=== PATIENT | female | born 1965 | race Caucasian/White ===

== ENCOUNTER 2017-03-31 14:06 | Emergency (ER) | payer SELFPAY ==
[~2017-03-31] VITALS: Ht 160 cm; Wt 124.5 kg
[2017-03-31 14:09] VITALS: BP 169/102; PULSE 86; RESP 20; TEMP 99.6; O2SAT 94
--- NOTE | 2017-03-31 14:14 | PD ---
Physical Exam Date Seen by Provider: Mar 31, 2017 Time Seen by Provider: 14:13 Narrative 51 yo female here for evaluation of throat and ear pain. Going on since wednesday. Pain is 7/10. No other medical issues. No sick contacts. Congestion. Vitals are stable in triage. Awaiting bed placement. Data Data Last Documented VS Vital Signs Date Time Temp Pulse Resp B/P (MAP) Pulse Ox O2 Delivery O2 Flow Rate FiO2 03/31/17 14:09 99.6 86 20 169/102 (124) [address] [facility] Medical Record Reviewed: Yes Supervised Visit with RADHA: No Scripts No Active Prescriptions or Reported Meds Sony Zurita Mar 31, 2017 14:14
[2017-03-31] MEDS ORDERED: DEXAMETHASONE SOD PHOS 4 MG/ML VIAL IM ONE (15:15)
[2017-03-31] MEDS ORDERED: IBUP800T23 PO (15:15)
[2017-03-31] MEDS ORDERED: AMOX500C PO (15:15)
[2017-03-31] MEDS ORDERED: MAGICPED SWISH-SPIT (15:15)
--- NOTE | 2017-03-31 15:16 | PD ---
HPI Chief Complaint: ENT Complaint Time Seen by Provider: 15:11 Travel History International Travel<30 days: No Contact w/Intl Traveler<30days: No Traveled to known affect area: No History of Present Illness HPI 51-year-old female presents emergency Department with complaint of sore throat and bilateral ear pain since Wednesday. Says she has history of strep pharyngitis and gets it every 3 years or so. Denies lump in throat, difficulty swallowing, unusual drooling. Reports painful swallowing. Reports anterior cervical lymph node tenderness and swelling. Reports voice is different. Denies nasal congestion, cough. Has tried salt water gargles and ibuprofen for symptom management. Symptoms are moderate in severity. No known allergies. Has no other medical complaints. No other modifying factors or associated signs and symptoms. PFSH Past Medical History Cardiovascular Problems: Yes (HTN) Diminished Hearing: No ?: Not LMP: 02/17/17 Tubal Ligation: Yes Past Surgical History Cholecystectomy: Yes Social History Alcohol Use: Yes (SOCIALLY) Tobacco Use: No Substance Use: No Allergies-Medications (Allergen,Severity, Reaction): Coded Allergies: No Known Allergies (Verified , 01/27/16) Reported Meds & Prescriptions Reported Meds & Active Scripts Active Ibuprofen 800 Mg Tab 800 Mg PO Q6HR PRN Magic Mouthwash Pediatric/Adult Liq (Lidocaine/Diphenhydr/Alum/Mg/Simeth) 60 Ml Susp 5 Ml SWISH-SPIT Q3HR PRN Each 5mL contains: Diphenydramine 4.5mg, Viscous Lidocaine 2% 10mg, Maalox Advanced Regular Strength 2.7ml Amoxicillin 500 Mg Cap 500 Mg PO BID 10 Days Review of Systems Except as stated in HPI: all other systems reviewed are Neg Physical Exam Narrative GENERAL: Well-nourished, well-developed female patient, in no acute distress; low-grade fever 99.6. Nontoxic-appearing. SKIN: Warm and dry. No rash. HEAD: Atraumatic. Normocephalic. EYES: Pupils equal and round at 3 mm with brisk reaction. No scleral icterus. No injection or drainage. PERRLA. ENT: Mucosa pink and dry. Pharynx with 3+ tonsils; with erythema, exudate, and edema. No Uvular edema. No uvular, palatal, or tonsillar deviation. Airway patent. Voice is hoarse. EARS: Bilateral pinnae and external canals appear within normal limits. Bilateral tympanic membranes without erythema, dullness or perforation.. NECK: Trachea midline. Anterior cervical lymphadenopathy and tenderness. CARDIOVASCULAR: Regular rate and rhythm. No murmur appreciated. RESPIRATORY: No accessory muscle use. Clear to auscultation. Breath sounds equal bilaterally. GASTROINTESTINAL: Rounded. MUSCULOSKELETAL: No obvious deformities. No clubbing. No cyanosis. No edema. NEUROLOGICAL: Awake and alert. Oriented 3. No obvious cranial nerve deficits. Motor grossly within normal limits. Normal speech. Moves all extremities. PSYCHIATRIC: Appropriate mood and affect; insight and judgment normal. Data Data Last Documented VS Vital Signs Date Time Temp Pulse Resp B/P (MAP) Pulse Ox O2 Delivery O2 Flow Rate FiO2 03/31/17 14:09 99.6 86 20 169/102 (124) 94 Room Air Orders Orders Group A Rapid Strep Screen (03/31/17 15:11) Dexamethasone Inj (Decadron Inj) (03/31/17 15:15) MDM Medical Decision Making Medical Screen Exam Complete: Yes Emergency Medical Condition: Yes Medical Record Reviewed: Yes Differential Diagnosis Strep pharyngitis, viral pharyngitis, exudative pharyngitis, less likely peritonsillar abscess Narrative Course 51-year-old female physical exam consistent with exudative pharyngitis. Low- grade fever of 99.6 in the ear. Denies fever, vomiting or home. Reports history of strep throat every few years. Denies lump in throat, difficulty swelling, unusual drooling. Patient requesting steroid injection. Decadron administered in the ER. Rapid strep ordered and pending. Amoxicillin, Magic mouthwash, ibuprofen prescribed for home. Instructed patient to follow up with primary care provider. Patient verbalizes understanding and agreement with treatment plan. Patient is medically cleared and stable for discharge. Discussed reasons to return to the emergency department. Patient agrees with treatment plan. The patients vital signs are stable and the patient is stable for outpatient follow-up and treatment. Patient discharged home, stable and in no acute distress. Diagnosis Primary Impression: Exudative pharyngitis Referrals: [facility] Primary Care Physician Patient Instructions: General Instructions, Pharyngitis (ED) Departure Forms: Tests/Procedures, Work Release Enter return to work date: Apr 02, 2017 Additional Instructions: Take Antibiotics as prescribed and complete full course of antibiotics Throw away and change your toothbrush 24 hours after starting antibiotics Get plenty of sleep/rest Rest your voice Drink plenty of fluids to prevent dehydration Use warm saltwater gargles to soothe throat pain Use an air humidifier/turn off ceiling fans Use throat lozenges as needed for sore throat Use ibuprofen or acetaminophen as needed to relieve pain and fever Follow-up with your primary care provider within 2-4 days Return immediately to the emergency department with worsening of symptoms Med/Other Pt SpecificInfo: Prescription(s) given Scripts Ibuprofen (Ibuprofen) 800 Mg Tab 800 MG PO Q6HR Y for PAIN, #30 TAB 0 Refills Prov: Lindy Parada 03/31/17 Dhntdrcodrkbspe-Jhdxpdybe-Coj-Alum-Simeth Liq (Magic Mouthwash Pediatric/Adult Liq) 60 Ml Susp 5 ML SWISH-SPIT Q3HR Y for SORE THROAT, #60 ML 0 Refills Each 5mL contains: Diphenydramine 4.5mg, Viscous Lidocaine 2% 10mg, Maalox Advanced Regular Strength 2.7ml Prov: Lindy Parada 03/31/17 Amoxicillin (Amoxicillin) 500 Mg Cap 500 MG PO BID for Infection for 10 Days, CAP 0 Refills Prov: Lindy Parada 03/31/17 Disposition: 01 DISCHARGE HOME Condition: Stable Lindy Parada Mar 31, 2017 15:16
[2017-03-31 15:39] VITALS: BP 168/98
== END 2017-03-31 15:42 | disposition home or self-care (01) ==
LOC: NEPK 14:06
DX: J02.0 Streptococcal pharyngitis (principal); B95.0 Streptococcus, group A, as the cause of diseases classified elsewhere
CPT/HCPCS: 87880; 96372; 99284; J1100